=== PATIENT | male | born 2000 | race Caucasian/White ===

== ENCOUNTER 2023-02-26 11:48 | Outpatient (AMB) | payer BC, SELFPAY ==
--- NOTE | 2023-02-26 12:01 | MHC.OFFWIV ---
Intake Vital Signs 02/26/23 12:02 Height 5 ft 4 in Weight 145 lb BMI 24.9 BP 102/42 L Blood Pressure Location Lt brachial Position Sitting Respiration 13 Pulse 74 Pulse Source Pulse Oximeter Pulse Oximetry (%) 97 Oxygen Delivery Method Room Air Intake Visit Reasons: right ring finger jammed Intake Note: Patient jammed ring finger in closet door. Patient Tobacco Use Status: Never used Tobacco Accompanied by: Self / Same As Patient Allergies No Known Allergies Allergy (Verified 02/26/23 12:24) Medication List - Last Reconciled 02/26/23 by Nita Velasquez, [facility]- amoxicillin-pot clavulanate 875-125 mg 1 tab PO BID 7 days Do you need a note to return to daycare/school/sports/work: No HPI HPI Comments History of Present Illness Details here today after jamming right ring finger into his closet door 2 days ago since onset, he developed some redness around the cuticle and this AM he had purulent drainage from this area He is UTD on tetanus Good sensation in finger denies fever, chills PFSH Social History Patient Tobacco Use Status: Never used Tobacco Review of Systems Const All systems reviewed & are unremarkable except as noted in HPI and below Physical Exam Vital Signs: Last Vital Signs Pulse 74 02/26/23 12:02 Resp 13 02/26/23 12:02 BP 102/42 L 02/26/23 12:02 Pulse Ox 97 02/26/23 12:02 Oxygen Delivery Method Room Air 02/26/23 12:02 BMI result Body Mass Index 24.9 Extrem Hand/finger images: 1. erythema, edema and fluctuance right ring finger. + CMS Nail intact, no drainage expressed Assessment & Plan Assessment & Plan (1) Paronychia of right ring finger: Code(s): L03.011 - Cellulitis of right finger Plan: take antibiotic with food as directed. soak finger in epsom salt and warm water 2:1 ratio three times per day; ok to gently express any pus but do not squeeze or force anything. keep an eye on the discoloration. if increased redness, swelling or pain occur, please come back to the office for further eval. as always, good hand washing is encouraged. ok to keep area open without a band aid. Medications: New amoxicillin-pot clavulanate 875-125 mg 1 tab PO BID 7 days 14 tabs 0RF Patient Instructions: take antibiotic with food as directed. soak finger in epsom salt and warm water 2:1 ratio three times per day; ok to gently express any pus but do not squeeze or force anything. keep an eye on the discoloration. if increased redness, swelling or pain occur, please come back to the office for further eval. as always, good hand washing is encouraged. ok to keep area open without a band aid. Coding Level of Care Code Est Pt Level 3 (34198) Diagnoses Paronychia of right ring finger L03.011
[2023-02-26 12:02] VITALS: BP 102/42; PULSE 74; RESP 13; O2SAT 97; BMI 24.9
== END 2023-02-26 12:31 | disposition home or self-care (01) ==
PROVIDERS: Visit Provider Nurse Practitioner Family
DX: L03.011 Cellulitis of right finger (principal)
CPT/HCPCS: 99213